=== PATIENT | male | born 1940 | race Caucasian/White ===

== ENCOUNTER 2016-08-21 17:22 | Emergency (ER) | payer MEDICARE, OTHER ==
--- NOTE | 2016-08-21 18:54 | EDM.PDOC ---
ED HPI GENERAL MEDICAL PROBLEM - General Chief Complaint: Laceration Stated Complaint: LT EYEBROW CUT Time Seen by Provider: 08/21/16 18:18 Source of Information: Reports: Patient, RN Notes Reviewed History Limitations: Reports: No Limitations - History of Present Illness INITIAL COMMENTS - FREE TEXT/NARRATIVE: Here with his Chief complaint: Fall, facial injury HPI: 75-year-old male was walking his dog about an hour ago, turned his head when a car was coming along the road, when he turned his head back forward again he ended up tripping over the dog's leash landing on his face. No loss of consciousness, not stunned or dazed. Facial injuries are present He also scraped his left hand in his knees reports his behaviors been normal No nausea no vomiting no repetitive speech no confusion On anticoagulants Tetanus status up to date - Related Data Allergies Allergy/AdvReac Type Severity Reaction Status Date / Time walnut Allergy Cannot Verified 08/21/16 18:07 Remember Home Meds: Home Meds Levothyroxine [Synthroid] 1 tab PO DAILY 08/21/16 [History] atorvaSTATin [Lipitor] 1 tab PO DAILY 08/21/16 [History] Past Medical History HEENT History: Reports: Cataract Cardiovascular History: Reports: High Cholesterol Gastrointestinal History: Reports: GERD Genitourinary History: Reports: Other (See Below) Other Genitourinary History: bladder stone Musculoskeletal History: Reports: Back Pain, Chronic Endocrine/Metabolic History: Reports: Hypothyroidism - Past Surgical History HEENT Surgical History: Reports: Tonsillectomy Male Surgical History: Reports: Other (See Below) Other Male Surgeries/Procedures: prosate surgery Social & Family History - Tobacco Use Smoking Status *Q: Never Smoker - Recreational Drug Use Recreational Drug Use: No ED ROS GENERAL - Review of Systems Review Of Systems: See Below Constitutional: Reports: No Symptoms HEENT: Reports: No Symptoms Respiratory: Reports: No Symptoms Cardiovascular: Reports: No Symptoms GI/Abdominal: Reports: No Symptoms Musculoskeletal: Reports: No Symptoms Skin: Reports: Wound (Abrasions to left hand left-sided face and knees) Neurological: Reports: No Symptoms Psychiatric: Reports: No Symptoms ED EXAM, SKIN/RASH Exam: See Below Exam Limited By: No Limitations General Appearance: Alert, Mild Distress, Other (Vital signs normal apart from mild systolic blood pressure elevationColor normal, mood normal) Eye Exam: Left Eye: Periorbital Changes (Hematoma medial aspect upper lid), Bilateral Eye: EOMI, PERRL, Other (No visual changes no corneal injuries, no clubbing) Ears: Normal External Exam, Normal Canal, Normal TMs Nose: Normal Mucosa, Other (Abrasions on the left side of her nose, and no blood inside the nose, no septal hematoma). No: Nasal Deformity Throat/Mouth: Normal Inspection, Normal Lips, Normal Teeth, Normal Oropharynx Head: Other (Abrasions left side before it, 1 cm transverse laceration above the left eyebrow abrasions adjacent to the left tip of the nose) Neck: Supple, Non-Tender. No: Lymphadenopathy (R), Lymphadenopathy (L) Respiratory/Chest: No Respiratory Distress, No Accessory Muscle Use Cardiovascular: Normal Peripheral Pulses, Regular Rate, Rhythm Extremities: Other (Superficial abrasions left palm and both knees) Neurological: Alert, Oriented, Normal Cognition, No Motor/Sensory Deficits Psychiatric: Normal Affect, Normal Mood Skin: Warm, Dry, Other (Ones described above) Lymphatic: No Adenopathy ED SKIN PROCEDURES - Laceration/Wound Repair Forehead Lac/wound length in cm: 1 Appearance: subcutaneous, mildly contaminated Distal NVT: neuro & vascular intact Anesthetic Type: local Local anesthesia - Lidocaine (Xylocaine): 1% with epi Local anesthetic volume: 1cc Skin prep: saline Exploration/Debridement/Repair: wound explored Closed with: sutures Suture size: other (6-0) # of sutures: 3 Suture type: other (Rapid dissolving plain gut) Drain placement: No Sterile dressing applied: nurse Tetanus status addressed: Yes Complications: No Progress/Comments: Tolerated well without complication Course - Vital Signs Last Recorded V/S: Last Vital Signs Temp 36.8 C 08/21/16 20:41 Pulse 83 08/21/16 20:41 Resp 17 08/21/16 20:41 BP 133/80 08/21/16 20:41 Pulse Ox 95 08/21/16 20:41 - Orders/Labs/Meds Meds: Medications Discontinued Medications Generic Name Dose Route Start Last Admin Trade Name Freq PRN Reason Stop Dose Admin Bacitracin 3 dose 08/21/16 20:33 08/21/16 20:51 Bacitracin Oint 1 Gm TOP 08/21/16 20:34 3 dose ONETIME ONE Administration Lidocaine/Epinephrine 10 ml 08/21/16 19:52 08/21/16 20:41 Xylocaine 1% With Epinephrine 1:100,000 INJECT 08/21/16 19:53 10 ml ONETIME STA Administration Lidocaine/Tetracaine 5 ml 08/21/16 18:58 08/21/16 19:04 Let Soln TOP 08/21/16 18:59 5 ml ONETIME ONE Administration - Re-Assessments/Exams Free Text/Narrative Re-Assessment/Exam: 08/21/16 18:54 75-year-old male with injuries to his limbs and face from a fall onto the road There is one laceration that needs repair Wound cleansing per RN, after applying LET. 08/21/16 20:33 Laceration repair, see procedure note Topical bacitracin to wounds See discharge instructions 08/21/16 20:34 Departure - Departure Time of Disposition: 20:32 Disposition: Home, Self-Care 01 Condition: good Clinical Impression: Abrasions of multiple sites Head injury, acute, without loss of consciousness Qualifiers: Encounter type: initial encounter Qualified Code(s): S09.90XA - Unspecified injury of head, initial encounter Laceration of forehead without complication Qualifiers: Encounter type: initial encounter Qualified Code(s): S01.81XA - Laceration without foreign body of other part of head, initial encounter - Discharge Information Instructions: Laceration Care, Adult, [id number], Head Injury, Adult Referrals: PCP,None [Primary Care Provider] - Forms: ED Department Discharge Additional Instructions: You have 3 stitches that will dissolve and do not need to be removed in the left side of her forehead. Apply an antibiotic ointment such as bacitracin, Triple Antibiotic ointment or Neosporin in a thin layer to the wounds once or twice daily to keep them moist and protect them from irritation. Get rechecked if you have bad odor or cloudy discharge from the wound, or if you have increasingly severe pain or fever
[2016-08-21] MEDS ORDERED: Lidocaine/EPINEPHrine/Tetracaine Soln 5 ML Each TOP ONE (18:58)
[2016-08-21] MEDS ORDERED: Lidocaine 1% with EPINEPHrine 1:100,000 50 ML MDV INJECT STA (19:52)
[2016-08-21] MEDS ORDERED: Bacitracin Oint 1 GM U/D Packet TOP ONE (20:33)
[2016-08-21 20:44] VITALS: BP 133/80
== END 2016-08-21 20:54 | disposition home or self-care (01) ==
LOC: JP.ED 17:22
DX: S01.112A Laceration without foreign body of left eyelid and periocular area, initial encounter (principal); S09.90XA Unspecified injury of head, initial encounter; S00.31XA Abrasion of nose, initial encounter; S60.512A Abrasion of left hand, initial encounter; S80.212A Abrasion, left knee, initial encounter; S80.211A Abrasion, right knee, initial encounter; E78.00 Pure hypercholesterolemia, unspecified; E03.9 Hypothyroidism, unspecified; Z98.890 Other specified postprocedural states; Z79.899 Other long term (current) drug therapy; Z91.018 Allergy to other foods; W01.0XXA Fall on same level from slipping, tripping and stumbling without subsequent striking against object, initial encounter
CPT/HCPCS: 12011; 99283; A9270; 99282-25